=== PATIENT | female | born 2000 | race Caucasian/White ===

== ENCOUNTER 2020-12-28 14:29 | Emergency (ER) | payer MEDICAID, OTHER ==
[~2020-12-28] VITALS: Ht 157.5 cm; Wt 73.5 kg
[2020-12-28 15:01] VITALS: BP 120/70
[2020-12-28 15:18] LABS: Urine Bacteria NONE SEEN /hpf (None Seen); Urine Blood 2+ /uL (Negative); Urine Mucus FEW (None Seen); Urine Specific Gravity 1.035 (1.001-1.035); Urine WBC 18 /hpf (0 - 5)
[2020-12-28] MEDS ORDERED: KETOROLAC TROMETH 60MG/2ML VIAL IM ONE (16:15)
[2020-12-28] MEDS ORDERED: ONDANSETRON ODT 4 MG TAB PO ONE (16:15)
== END 2020-12-28 17:08 | disposition home or self-care (01) ==
LOC: ER 14:29
DX: N20.2 Calculus of kidney with calculus of ureter (principal)
CPT/HCPCS: 74176; 81001; 81025; 96372; 99284; J1885; Q0162